=== PATIENT | female | born 1945 | race Caucasian/White ===

== ENCOUNTER → 2016-09-06 | Outpatient (REF) | payer OTHER ==
[~2016-09-06] MED LIST: AMAR1TAB; LOSA100T37 PO; METF1000 PO; No Historical Meds; VITA20008 PO
== END ==
LOC: M SFHCCLAY 14:34
PROVIDERS: ATTEND Family Medicine
DX: E11.9 Type 2 diabetes mellitus without complications (principal)

== ENCOUNTER → 2017-05-18 | Outpatient (REF) | payer OTHER, SELFPAY ==
[~2017-05-18] MED LIST changes: -LOSA100T37 PO; +LOSA100T5 PO; -METF1000 PO; +METF10004 PO
[2017-05-18 18:38] LABS: ANION GAP 7 MEQ/L (8-16); BLOOD UREA NITROGEN 12 MG/DL (7-18); CARBON DIOXIDE LEVEL 31 MEQ/L (21-32); CHLORIDE LEVEL 102 MEQ/L (98-107); CREATININE FOR GFR 0.74 MG/DL (0.55-1.02); GLOMERULAR FILTRATION RATE > 60.0 (>39); GLUCOSE, FASTING 140 MG/DL (83-110); SODIUM LEVEL 140 MEQ/L (136-145)
== END ==
LOC: M SFHCCLAY 12:05
PROVIDERS: ATTEND Family Medicine
DX: E11.9 Type 2 diabetes mellitus without complications (principal); I10 Essential (primary) hypertension

== ENCOUNTER → 2017-09-12 | Outpatient (REF) | payer OTHER ==
[2017-09-13 12:17] LABS: ESTIMATED AVERAGE GLUCOSE 169 MG/DL (60-110); HEMOGLOBIN A1c 7.5 %
== END ==
LOC: M SFHCCLAY 14:58
DX: E11.9 Type 2 diabetes mellitus without complications (principal)

== ENCOUNTER → 2018-11-29 | Outpatient (REF) | payer OTHER, SELFPAY ==
[2018-11-30 11:27] LABS: BLOOD UREA NITROGEN 18 MG/DL (7-18); CALCIUM LEVEL 9.1 MG/DL (8.8-10.2); CARBON DIOXIDE LEVEL 28 MEQ/L (21-32); CHLORIDE LEVEL 105 MEQ/L (98-107); CREATININE FOR GFR 0.86 MG/DL (0.55-1.30); GLOMERULAR FILTRATION RATE > 60.0 (>39); GLUCOSE, FASTING 230 MG/DL (70-100); SODIUM LEVEL 139 MEQ/L (136-145)
[2018-11-30 11:45] LABS: HEMOGLOBIN A1c 8.6 %
== END ==
LOC: M SFHCCLAY 14:41
PROVIDERS: ATTEND Nurse Practitioner Family
DX: E11.9 Type 2 diabetes mellitus without complications (principal)

== ENCOUNTER → 2019-05-29 | Outpatient (REF) | payer OTHER ==
[2019-05-29 17:22] LABS: BLOOD UREA NITROGEN 13 MG/DL (7-18); CALCIUM LEVEL 9.4 MG/DL (8.8-10.2); CARBON DIOXIDE LEVEL 28 MEQ/L (21-32); CHLORIDE LEVEL 100 MEQ/L (98-107); CHOLESTEROL LEVEL 140 MG/DL (<200); CHOLESTEROL RISK RATIO 4.242 (<5); CREATININE FOR GFR 0.78 MG/DL (0.55-1.30); GLOMERULAR FILTRATION RATE > 60.0 (>39); GLUCOSE, FASTING 116 MG/DL (70-100); HDL CHOLESTEROL 33 MG/DL (>40); LDL CHOLESTEROL 28 MG/DL (<100); NON-HDL-C 107 MG/DL; POTASSIUM SERUM 4.6 MEQ/L (3.5-5.1); SODIUM LEVEL 136 MEQ/L (136-145); TRIGLYCERIDES LEVEL 395 MG/DL (<150)
[2019-05-29 17:44] LABS: HEMOGLOBIN A1c 8.4 %
== END ==
LOC: M SFHCCLAY 11:06
PROVIDERS: ATTEND Family Medicine
DX: E11.9 Type 2 diabetes mellitus without complications (principal)

== ENCOUNTER → 2019-11-28 | Outpatient (REF) | payer OTHER, SELFPAY ==
[2019-11-28 16:31] LABS: BLOOD UREA NITROGEN 17 MG/DL (7-18); CARBON DIOXIDE LEVEL 31 MEQ/L (21-32); CHLORIDE LEVEL 99 MEQ/L (98-107); CREATININE FOR GFR 0.99 MG/DL (0.55-1.30); GLOMERULAR FILTRATION RATE 58.4 (>39); GLUCOSE, FASTING 180 MG/DL (70-100); POTASSIUM SERUM 4.1 MEQ/L (3.5-5.1); SODIUM LEVEL 137 MEQ/L (136-145)
[2019-11-28 16:59] LABS: CREATININE, URINE 65.3 MG/DL; MALB URINE SIEMENS 36.5 MG/L; MAU/CREAT RATIO 55.8 MCG/MG (0.0-30.0)
[2019-11-29 11:47] LABS: TOTAL 25(OH) VITAMIN D 30.4 NG/ML (30.0-100.0)
[2019-11-29 13:45] LABS: TOTAL PROTEIN 7.6 GM/DL (6.4-8.2)
[2019-12-03 09:50] LABS: ALBUMIN 4.07 GM/DL (3.29-5.55); ALBUMIN % 53.6 % (55.8-66.1)
[2019-12-03 09:51] LABS: ALPHA-1-GLOBULIN % 5.8 % (2.9-4.9); ALPHA-1-GLOBULINS 0.44 GM/DL (0.17-0.41); ALPHA-2-GLOBULINS 0.89 GM/DL (0.42-0.99); ALPHA-2-GLOBULINS % 11.7 % (7.1-11.8); BETA-1-GLOBULINS 0.46 GM/DL (0.28-0.60); BETA-1-GLOBULINS % 6.1 % (4.7-7.2); BETA-2-GLOBULINS 0.49 GM/DL (0.19-0.55); BETA-2-GLOBULINS % 6.5 % (3.2-6.5); GAMMA GLOBULIN % 16.3 % (11.1-18.8); GAMMA GLOBULINS 1.24 GM/DL (0.65-1.58)
== END ==
LOC: M SFHCCLAY 11:47
PROVIDERS: ATTEND Family Medicine
DX: E11.9 Type 2 diabetes mellitus without complications (principal); I10 Essential (primary) hypertension; E03.9 Hypothyroidism, unspecified

== ENCOUNTER → 2019-12-03 | Outpatient (REF) | payer OTHER, SELFPAY ==
[2019-12-03 16:55] LABS: CALCIUM LEVEL 13.5 MG/DL (8.8-10.2); CREATININE FOR GFR 1.12 MG/DL (0.55-1.30); GLOMERULAR FILTRATION RATE 50.6 (>39); POTASSIUM SERUM 3.9 MEQ/L (3.5-5.1)
== END ==
LOC: M SFHCCLAY 10:21
PROVIDERS: ATTEND Family Medicine
DX: E83.52 Hypercalcemia (principal)

== ENCOUNTER → 2019-12-13 | Outpatient (CLI) | payer SELFPAY ==
--- NOTE | 2019-12-13 11:49 | REPPI ---
CHEST, TWO VIEWS: Two views of the chest are performed. COMPARISON: 09/07/2015. No acute infiltrate is seen. The heart is normal in size. There is bulging of the soft tissues in the aortopulmonic window suggesting adenopathy. Right hilar shadow is also mildly prominent which could represent adenopathy at that location. There is a stable calcified granuloma in the right upper lobe. There are diffuse degenerative changes of the spine. IMPRESSION: Suspect mediastinal and possibly hilar adenopathy. Recommend CT of the chest with IV contrast. Electronically Signed by Chalino Hernandez MD 12/13/2019 03:50 P
== END ==
LOC: M PLAIMG 11:03
PROVIDERS: ATTEND Family Medicine
DX: E83.52 Hypercalcemia (principal); R05 Cough

== ENCOUNTER → 2019-12-13 | Outpatient (CLI) | payer SELFPAY ==
--- NOTE | 2019-12-13 11:10 | REPMRS ---
Patient History The patient states she has not had a clinical breast exam in over a year. Patient is postmenopausal. Family history of prostate cancer at age 50 or over in brother. Digital Woman Screen Mammo: December 13, 2019 - Exam #: [id number] Bilateral CC and MLO view(s) were taken. Technologist: Kayleigh Strong, Technologist No prior studies available for comparison. FINDINGS: There are scattered fibroglandular densities. The Volpara volumetric breast density category is: B. There is no evidence of dominant mass, architectural distortion, or grouped microcalcification typical of malignancy. 3-D tomosynthesis shows no additional findings. Assessment: BI-RADS/ACR category 1 mammogram. Negative Mammogram. Recommendation Routine screening mammogram of both breasts in 1 year (for women over age 40). This patient's Lifetime Breast Cancer RIsk is estimated at 3.2 %. This mammogram was interpreted with the aid of an FDA-approved computer-aided dectection system. Electronically Signed By: Yong Rodriges MD 12/13/19 [id number]
== END ==
LOC: M WHC 10:19
PROVIDERS: ATTEND Family Medicine
DX: Z12.31 Encounter for screening mammogram for malignant neoplasm of breast (principal); Z80.42 Family history of malignant neoplasm of prostate

== ENCOUNTER → 2019-12-23 | Outpatient (REF) | payer OTHER, SELFPAY ==
[2019-12-23 16:44] LABS: CALCIUM LEVEL 11.9 MG/DL (8.8-10.2); CREATININE FOR GFR 1.25 MG/DL (0.55-1.30); GLOMERULAR FILTRATION RATE 44.6 (>39); POTASSIUM SERUM 4.7 MEQ/L (3.5-5.1)
== END ==
LOC: M SFHCCLAY 10:08
PROVIDERS: ATTEND Family Medicine
DX: E83.52 Hypercalcemia (principal)

== ENCOUNTER → 2020-01-30 | Outpatient (REF) | payer OTHER, SELFPAY ==
[2020-01-31 11:55] LABS: CREATININE FOR GFR 1.25 MG/DL (0.55-1.30); GLOMERULAR FILTRATION RATE 44.6 (>39); POTASSIUM SERUM 4.3 MEQ/L (3.5-5.1); THYROID STIMULATING HORMONE 2.16 uIU/ML (0.358-3.740)
== END ==
LOC: M SFHCCLAY 14:39
PROVIDERS: ATTEND Family Medicine
DX: E83.52 Hypercalcemia (principal); E03.9 Hypothyroidism, unspecified

== ENCOUNTER → 2020-10-29 | Outpatient (REF) | payer OTHER, SELFPAY ==
[2020-10-29 16:24] LABS: BASO # 0.1 10^3/uL (0.0-0.2); BASO % 1.1 % (0.0-1.0); EOS # 0.4 10^3/uL (0.0-0.5); EOS % 6.7 % (0.0-3.0); HEMATOCRIT 33.4 % (36.0-47.0); HEMOGLOBIN 10.8 g/dl (12.0-15.5); LYMPH # 1.2 10^3/uL (1.5-5.0); MEAN CORPUSCULAR HEMOGLOBIN 29.8 pg (27.0-33.0); MEAN CORPUSCULAR HGB CONC 32.3 g/dl (32.0-36.5); MONO # 0.6 10^3/uL (0.0-0.8); MONO % 10.2 % (2.0-8.0); NEUTROPHILS # 3.8 10^3/uL (1.5-8.5); NEUTROPHILS % 61.7 % (36.0-66.0); PLATELET COUNT, AUTOMATED 280 10^3/uL (150-450); RED BLOOD COUNT 3.63 10^6/uL (4.00-5.40); WHITE BLOOD COUNT 6.2 10^3/uL (4.0-10.0)
[2020-10-29 16:38] LABS: CALCIUM LEVEL 13.1 MG/DL (8.8-10.2); CREATININE FOR GFR 1.68 MG/DL (0.55-1.30); GLOMERULAR FILTRATION RATE 31.6 (>39); POTASSIUM SERUM 4.2 MEQ/L (3.5-5.1); THYROID STIMULATING HORMONE 3.82 uIU/ML (0.358-3.740)
[2020-10-29 16:43] LABS: HEMOGLOBIN A1c 6.2 %
== END ==
LOC: M SFHCCLAY 10:49
PROVIDERS: ATTEND Family Medicine
DX: E11.9 Type 2 diabetes mellitus without complications (principal); E83.52 Hypercalcemia; E03.9 Hypothyroidism, unspecified; R53.82 Chronic fatigue, unspecified

== ENCOUNTER → 2021-02-19 | Outpatient (REF) | payer OTHER ==
[2021-02-19 16:43] LABS: CREATININE FOR GFR 1.98 MG/DL (0.55-1.30); GLOMERULAR FILTRATION RATE 26.2 (>39); POTASSIUM SERUM 4.3 MEQ/L (3.5-5.1)
[2021-02-19 17:15] LABS: HEMOGLOBIN A1c 8.7 %
== END ==
LOC: M SFHCCLAY 10:48
PROVIDERS: ATTEND Family Medicine
DX: E83.52 Hypercalcemia (principal); E11.9 Type 2 diabetes mellitus without complications

== ENCOUNTER → 2021-07-22 | Outpatient (REF) | payer OTHER ==
[2021-07-22 16:20] LABS: HEMATOCRIT 32.6 % (36.0-47.0); HEMOGLOBIN 10.7 g/dl (12.0-15.5); MEAN CORPUSCULAR HEMOGLOBIN 31.3 pg (27.0-33.0); MEAN CORPUSCULAR HGB CONC 32.8 g/dl (32.0-36.5); MEAN CORPUSCULAR VOLUME 95.3 fl (80.0-96.0); PLATELET COUNT, AUTOMATED 263 10^3/uL (150-450); RED BLOOD COUNT 3.42 10^6/uL (4.00-5.40); WHITE BLOOD COUNT 12.1 10^3/uL (4.0-10.0)
[2021-07-22 16:47] LABS: CALCIUM LEVEL 9.5 MG/DL (8.8-10.2); CREATININE FOR GFR 1.86 MG/DL (0.55-1.30); GLOMERULAR FILTRATION RATE 28.1 (>39); POTASSIUM SERUM 5.2 MEQ/L (3.5-5.1)
[2021-07-22 19:13] LABS: CA 125 15.1 U/ML (<30.2)
== END ==
LOC: M SFHCCLAY 11:28
PROVIDERS: ATTEND Family Medicine
DX: E11.9 Type 2 diabetes mellitus without complications (principal); I25.118 Atherosclerotic heart disease of native coronary artery with other forms of angina pectoris; E83.52 Hypercalcemia; R18.8 Other ascites

== ENCOUNTER → 2021-08-09 | Outpatient (REF) | payer OTHER ==
[2021-08-10 11:30] LABS: BASO # 0.1 10^3/uL (0.0-0.2); EOS # 0.2 10^3/uL (0.0-0.5); EOS % 2.1 % (0.0-3.0); HEMATOCRIT 39.9 % (36.0-47.0); HEMOGLOBIN 13.1 g/dl (12.0-15.5); LYMPH # 1.1 10^3/uL (1.5-5.0); LYMPH % 11.8 % (24.0-44.0); MEAN CORPUSCULAR HEMOGLOBIN 30.8 pg (27.0-33.0); MEAN CORPUSCULAR HGB CONC 32.8 g/dl (32.0-36.5); MEAN CORPUSCULAR VOLUME 93.9 fl (80.0-96.0); MONO # 0.8 10^3/uL (0.0-0.8); MONO % 8.3 % (2.0-8.0); NEUTROPHILS % 76.4 % (36.0-66.0); PLATELET COUNT, AUTOMATED 233 10^3/uL (150-450); RED BLOOD COUNT 4.25 10^6/uL (4.00-5.40); WHITE BLOOD COUNT 9.1 10^3/uL (4.0-10.0)
[2021-08-10 13:52] LABS: ALBUMIN 3.9 GM/DL (3.2-5.2); BILIRUBIN,TOTAL 0.7 MG/DL (0.2-1.0); CALCIUM LEVEL 9.8 MG/DL (8.8-10.2); CREATININE FOR GFR 1.56 MG/DL (0.55-1.30); GLOMERULAR FILTRATION RATE 34.4 (>39); POTASSIUM SERUM 6.6 MEQ/L (3.5-5.1); TOTAL PROTEIN 7.4 GM/DL (6.4-8.2)
== END ==
LOC: M SFHCCLAY 16:10
PROVIDERS: ATTEND Physician Assistant
DX: R07.9 Chest pain, unspecified (principal)

== ENCOUNTER → 2021-08-11 | Outpatient (REF) | payer OTHER | LOC: M SFHCCLAY 10:54 | PROVIDERS: ATTEND Family Medicine | DX: E87.5 Hyperkalemia (principal) ==

== ENCOUNTER → 2021-08-12 | Outpatient (CLI) | payer OTHER, SELFPAY ==
[~2021-08-12] MED LIST changes: +GASTROGRAFIN SOLUTION 30ML (Q9963) As Ordered ONE
== END ==
LOC: M RAD 15:46
PROVIDERS: ATTEND Physician Assistant
DX: R07.9 Chest pain, unspecified (principal); R10.9 Unspecified abdominal pain
CPT/HCPCS: 74176; Q9963

== ENCOUNTER → 2021-10-28 | Outpatient (REF) | payer OTHER ==
[~2021-10-28] MED LIST changes: -GASTROGRAFIN SOLUTION 30ML (Q9963) As Ordered ONE
[2021-10-28 16:23] LABS: CALCIUM LEVEL 10.2 MG/DL (8.8-10.2); CREATININE FOR GFR 1.64 MG/DL (0.55-1.30); GLOMERULAR FILTRATION RATE 32.4 (>39); POTASSIUM SERUM 4.7 MEQ/L (3.5-5.1)
== END ==
LOC: M SFHCCLAY 11:23
PROVIDERS: ATTEND Family Medicine
DX: E11.22 Type 2 diabetes mellitus with diabetic chronic kidney disease (principal); I12.9 Hypertensive chronic kidney disease with stage 1 through stage 4 chronic kidney disease, or unspecified chronic kidney disease; N18.32 Chronic kidney disease, stage 3b

== ENCOUNTER → 2022-03-01 | Outpatient (REF) | payer OTHER ==
[2022-03-01 19:43] LABS: HEMOGLOBIN A1c 8.5 %
[2022-03-01 21:17] LABS: CALCIUM LEVEL 9.5 MG/DL (8.8-10.2); CREATININE FOR GFR 1.58 MG/DL (0.55-1.30); GLOMERULAR FILTRATION RATE 33.9 (>39); POTASSIUM SERUM 4.9 MEQ/L (3.5-5.1)
== END ==
LOC: M SFHCCLAY 11:34
PROVIDERS: ATTEND Family Medicine
DX: I10 Essential (primary) hypertension (principal)

== ENCOUNTER → 2022-08-31 | Outpatient (REF) | payer OTHER ==
[2022-08-31 18:22] LABS: HEMATOCRIT 37.2 % (36.0-47.0); MEAN CORPUSCULAR HEMOGLOBIN 30.2 pg (27.0-33.0); MEAN CORPUSCULAR HGB CONC 32.3 g/dl (32.0-36.5); MEAN CORPUSCULAR VOLUME 93.7 fl (80.0-96.0); PLATELET COUNT, AUTOMATED 247 10^3/uL (150-450); RED BLOOD COUNT 3.97 10^6/uL (4.00-5.40); WHITE BLOOD COUNT 6.4 10^3/uL (4.0-10.0)
[2022-08-31 18:39] LABS: HEMOGLOBIN A1c 8.8 % (4.0-6.0)
[2022-08-31 18:48] LABS: CALCIUM LEVEL 10.5 MG/DL (8.3-10.6); CREATININE FOR GFR 1.56 MG/DL (0.55-1.30); GLOMERULAR FILTRATION RATE 34.4 (>39); POTASSIUM SERUM 4.3 MMOL/L (3.5-5.1)
[2022-08-31 18:50] LABS: FREE T4 0.98 NG/DL (0.89-1.76); THYROID STIMULATING HORMONE 5.805 uIU/ML (0.55-4.78)
== END ==
LOC: M SFHCCLAY 12:15
PROVIDERS: ATTEND Family Medicine
DX: E11.22 Type 2 diabetes mellitus with diabetic chronic kidney disease (principal); E03.9 Hypothyroidism, unspecified; I10 Essential (primary) hypertension

== ENCOUNTER 2023-01-04 15:20 | Inpatient (IN) | payer SELFPAY ==
[~2023-01-04] VITALS: Ht 149.9 cm; Wt 64.5 kg
[2023-01-04] MEDS ORDERED: GLIP5TAB8 PO ×2 (15:46→20:26)
[2023-01-04] MEDS ORDERED: FURO20TA2 PO (15:46)
[2023-01-04] MEDS ORDERED: NESI12.5 PO (15:46)
[2023-01-04 17:37] LABS: BASO # 0.1 10^3/uL (0.0-0.2); EOS # 0.7 10^3/uL (0.0-0.5); EOS % 7.4 % (0.0-3.0); HEMATOCRIT 41.9 % (36.0-47.0); HEMOGLOBIN 13.9 g/dl (12.0-15.5); LYMPH # 2.3 10^3/uL (1.5-5.0); LYMPH % 24.7 % (24.0-44.0); MEAN CORPUSCULAR HEMOGLOBIN 30.3 pg (27.0-33.0); MEAN CORPUSCULAR HGB CONC 33.2 g/dl (32.0-36.5); MEAN CORPUSCULAR VOLUME 91.5 fl (80.0-96.0); MONO % 10.3 % (2.0-8.0); NEUTROPHILS # 5.2 10^3/uL (1.5-8.5); PLATELET COUNT, AUTOMATED 271 10^3/uL (150-450); RED BLOOD COUNT 4.58 10^6/uL (4.00-5.40); WHITE BLOOD COUNT 9.3 10^3/uL (4.0-10.0)
[2023-01-04] MEDS ORDERED: NS 1,000 ML IV ONE (17:40)
[2023-01-04 17:43] LABS: ALKALINE PHOSPHATASE 99 U/L (46-116); ALT/SGPT 27 U/L (7.0-40); AST/SGOT 32 U/L (<34); BILIRUBIN,DIRECT < 0.1 MG/DL (<0.4); BILIRUBIN,TOTAL 0.4 MG/DL (0.3-1.2); CK-MB VALUE MASS < 1.0 NG/ML (<3.6); TOTAL PROTEIN 7.6 G/DL (5.7-8.2)
[2023-01-04 17:47] LABS: CPK CREATINE PHOSPHOKINASE 55 U/L (34-145); MB/CK RELATIVE INDEX 1.81 (< OR =4)
[2023-01-04] MEDS ORDERED: METO1TAB33 PO (20:26)
[2023-01-04] MEDS ORDERED: ECOT81TA5 PO (20:26)
[2023-01-04 20:28] LABS: MAGNESIUM LEVEL 2.8 MG/DL (1.8-2.4)
[2023-01-04] MEDS ORDERED: HOME MED LIST COMPLETE! XX SCH (20:30)
[2023-01-04 20:33] LABS: FREE T4 0.98 NG/DL (0.89-1.76)
[2023-01-04 20:34] LABS: RSV AMPLIFICATION NEGATIVE (NEGATIVE)
[2023-01-04 20:45] LABS: VENOUS HCO3 31.5 MMOL/L (23.0-27.0); VENOUS O2 SATURATION 60.9 % (60.0-80.0); VENOUS PARTIAL PRESSURE CO2 54.4 mmHg (38.0-50.0); VENOUS PARTIAL PRESSURE O2 32.4 mmHg (30.0-50.0); VENOUS PH 7.381 UNITS (7.330-7.430); VENOUS STANDARD HCO3 28.1 MMOL/L; VENOUS TOTAL CO2 33.2 MMOL/L (24.0-28.0)
[2023-01-04 21:39] VITALS: BP 188/90; TEMP 98.2; O2SAT 99
[2023-01-04] MEDS ORDERED: FOSFOMYCIN TROMETHAMINE 3 GM POWDER PACKET (MONUROL) PO ONE (22:00)
[2023-01-04] MEDS: NS 1,000 ML IV SCH (22:16)
[2023-01-04] MEDS: NYSTATIN 100,000 UNITS/GM TOPICAL PWD 15GM TOP SCH (22:16)
[2023-01-04 22:25] VITALS: BP 158/98
[2023-01-04] MEDS ORDERED: GLUCOSE 4GM CHEW TABLET PO PRN (23:05)
[2023-01-04] MEDS ORDERED: DEXTROSE 50% 50ML SYRINGE IV PRN (23:05)
[2023-01-04] MEDS ORDERED: FLUTICASONE PROP 0.05% NASAL SPRAY 16 GM (FLONASE) NARES PRN (23:05)
[2023-01-04] MEDS ORDERED: GLUCAGON INJ 1MG VIAL SC PRN (23:05)
[2023-01-04] MEDS: INSULIN LISPRO (NovoLOG) PER UNIT SC SCH (23:16)
[2023-01-04] MEDS: DOCUSATE SODIUM 100MG CAPSULE PO SCH (23:24)
[2023-01-05 06:00] VITALS: BP 165/70; TEMP 98.6; O2SAT 97
[2023-01-05 07:20] LABS: HEMATOCRIT 38.2 % (36.0-47.0); HEMOGLOBIN 12.5 g/dl (12.0-15.5); MEAN CORPUSCULAR HEMOGLOBIN 30.3 pg (27.0-33.0); MEAN CORPUSCULAR HGB CONC 32.7 g/dl (32.0-36.5); MEAN CORPUSCULAR VOLUME 92.5 fl (80.0-96.0); PLATELET COUNT, AUTOMATED 229 10^3/uL (150-450); RED BLOOD COUNT 4.13 10^6/uL (4.00-5.40); WHITE BLOOD COUNT 6.4 10^3/uL (4.0-10.0)
[2023-01-05 07:58] LABS: ALBUMIN 3.4 G/DL (3.2-5.2); BILIRUBIN,TOTAL 0.3 MG/DL (0.3-1.2); CALCIUM LEVEL 14.4 MG/DL (8.3-10.6); CREATININE FOR GFR 2.18 MG/DL (0.55-1.30); GLOMERULAR FILTRATION RATE 23.3 (>39); POTASSIUM SERUM 3.6 MMOL/L (3.5-5.1); TOTAL PROTEIN 6.5 G/DL (5.7-8.2)
[2023-01-05] MEDS: ASPIRIN 81MG ENTERIC TABLET PO SCH (08:33)
[2023-01-05] MEDS: MIRALAX *UNIT DOSE* 17GM PACKET PO SCH (08:33)
[2023-01-05] MEDS: INSULIN LISPRO (NovoLOG) PER UNIT SC SCH ×4 (08:34→20:12)
[2023-01-05] MEDS: NYSTATIN 100,000 UNITS/GM TOPICAL PWD 15GM TOP SCH ×2 (08:35→20:12)
[2023-01-05] MEDS: DOCUSATE SODIUM 100MG CAPSULE PO SCH ×2 (08:36→20:13)
[2023-01-05 08:38] LABS: MAGNESIUM LEVEL 2.5 MG/DL (1.8-2.4)
[2023-01-05] MEDS: NS 1,000 ML IV SCH ×2 (08:39→20:13)
[2023-01-05] MEDS ORDERED: METOPROLOL SUCC (TopROL XL) 100MG *XL* TAB PO SCH (09:00)
[2023-01-05] MEDS: CALCITONIN SALMON (MIACALCIN) 400INTERNATIONAL UNITS/2ML VIAL SQ SCH ×2 (09:31→20:12)
[2023-01-05 09:34] LABS: PTH INTACT 8.6 PG/ML (18.5-88.0)
[2023-01-05 09:38] LABS: TOTAL 25(OH) VITAMIN D 50.6 NG/ML (20.0-100.0)
[2023-01-05 13:29] LABS: ALBUMIN 3.8 G/DL (3.2-5.2); CALCIUM LEVEL 12.5 MG/DL (8.3-10.6)
[2023-01-05 14:00] VITALS: BP 140/85; TEMP 97.7; O2SAT 97
[2023-01-05] MEDS: HEPARIN SOD (PORCINE) 5000UNITS/ML 1ML VIAL/SYRINGE SQ SCH ×2 (15:01→21:55)
[2023-01-05 20:07] VITALS: BP 178/80; TEMP 98.8; TEMP 99.1; O2SAT 94
[2023-01-05 20:08] LABS: ALBUMIN 3.4 G/DL (3.2-5.2); CALCIUM LEVEL 11.3 MG/DL (8.3-10.6)
[2023-01-05] MEDS: diphenhydrAMINE CREAM 30GM TOP PRN (20:12)
[2023-01-05] MEDS: ACETAMINOPHEN TAB 650MG DOSE (2X325MG) PO PRN (20:14)
[2023-01-05] MEDS ORDERED: **hydrALAZINE** 10 MG TAB PO ONE (20:55)
[2023-01-05 21:35] VITALS: TEMP 98.2
[2023-01-05 23:05] VITALS: BP 178/82
[2023-01-06] VITALS (13 sets, daily range): BP systolic 137–222; BP diastolic 60–98; TEMP 98.7–100.1; O2SAT 91–96
[2023-01-06] MEDS ORDERED: amLODIPine 5 MG TAB PO ONE
[2023-01-06] MEDS ORDERED: hydrALAZINE 20MG/ML 1ML VIAL IV ONE ×2 (02:00→03:00)
[2023-01-06 02:13] LABS: ALBUMIN 3.1 G/DL (3.2-5.2); CALCIUM LEVEL 11.9 MG/DL (8.3-10.6)
[2023-01-06] MEDS ORDERED: CALCITONIN SALMON (MIACALCIN) 400INTERNATIONAL UNITS/2ML VIAL SQ ONE (03:00)
[2023-01-06] MEDS ORDERED: SCOPOLAMINE 1MG TRANSDERMAL PATCH TOP ONE (04:00)
[2023-01-06 04:10] LABS: BASO # 0.1 10^3/uL (0.0-0.2); BASO % 0.9 % (0.0-1.0); EOS # 0.5 10^3/uL (0.0-0.5); EOS % 6.4 % (0.0-3.0); HEMATOCRIT 36.4 % (36.0-47.0); HEMOGLOBIN 12.3 g/dl (12.0-15.5); LYMPH # 1.7 10^3/uL (1.5-5.0); LYMPH % 22.9 % (24.0-44.0); MEAN CORPUSCULAR HEMOGLOBIN 30.4 pg (27.0-33.0); MEAN CORPUSCULAR HGB CONC 33.8 g/dl (32.0-36.5); MEAN CORPUSCULAR VOLUME 90.1 fl (80.0-96.0); MONO # 0.7 10^3/uL (0.0-0.8); MONO % 9.2 % (2.0-8.0); NEUTROPHILS # 4.5 10^3/uL (1.5-8.5); NEUTROPHILS % 60.3 % (36.0-66.0); PLATELET COUNT, AUTOMATED 248 10^3/uL (150-450); RED BLOOD COUNT 4.04 10^6/uL (4.00-5.40); WHITE BLOOD COUNT 7.5 10^3/uL (4.0-10.0)
[2023-01-06 04:42] LABS: CREATININE FOR GFR 1.99 MG/DL (0.55-1.30); GLOMERULAR FILTRATION RATE 25.9 (>39); POTASSIUM SERUM 3.6 MMOL/L (3.5-5.1)
[2023-01-06] MEDS: HEPARIN SOD (PORCINE) 5000UNITS/ML 1ML VIAL/SYRINGE SQ SCH ×3 (06:09→21:07)
[2023-01-06] MEDS: NS 1,000 ML IV SCH ×2 (06:09→15:34)
[2023-01-06 07:34] LABS: ALBUMIN 3.3 G/DL (3.2-5.2); CALCIUM LEVEL 11.8 MG/DL (8.3-10.6)
[2023-01-06] MEDS: MIRALAX *UNIT DOSE* 17GM PACKET PO SCH (08:08)
[2023-01-06] MEDS: DOCUSATE SODIUM 100MG CAPSULE PO SCH ×2 (08:08→20:21)
[2023-01-06] MEDS ORDERED: CALCITONIN SALMON (MIACALCIN) 400INTERNATIONAL UNITS/2ML VIAL SQ SCH (09:00)
[2023-01-06] MEDS: INSULIN LISPRO (NovoLOG) PER UNIT SC SCH ×4 (09:09→20:50)
[2023-01-06] MEDS: ASPIRIN 81MG ENTERIC TABLET PO SCH (09:19)
[2023-01-06] MEDS: hydrALAZINE 20MG/ML 1ML VIAL IV PRN ×3 (09:20→20:49)
[2023-01-06] MEDS: NYSTATIN 100,000 UNITS/GM TOPICAL PWD 15GM TOP SCH ×2 (09:20→20:49)
[2023-01-06 10:09] LABS: ALBUMIN 3.3 G/DL (3.2-5.2); CALCIUM LEVEL 10.6 MG/DL (8.3-10.6)
[2023-01-06] MEDS: amLODIPine 5 MG TAB PO SCH (10:19)
[2023-01-06] MEDS: ONDANSETRON 4MG 2ML VIAL IV PRN ×2 (10:19→16:45)
[2023-01-06 15:38] LABS: ALBUMIN 3.3 G/DL (3.2-5.2); CALCIUM LEVEL 10.2 MG/DL (8.3-10.6)
[2023-01-06 21:42] LABS: ALBUMIN 3.2 G/DL (3.2-5.2); CALCIUM LEVEL 9.9 MG/DL (8.3-10.6)
[2023-01-07] VITALS (19 sets, daily range): BP systolic 149–200; BP diastolic 63–84; TEMP 98.6–100.1; O2SAT 93–97
[2023-01-07] MEDS: ONDANSETRON 4MG 2ML VIAL IV PRN ×2 (00:16→06:16)
[2023-01-07] MEDS: hydrALAZINE 20MG/ML 1ML VIAL IV PRN ×2 (03:09→21:23)
[2023-01-07] MEDS: ACETAMINOPHEN TAB 650MG DOSE (2X325MG) PO PRN (03:09)
[2023-01-07 03:18] LABS: BASO % 0.5 % (0.0-1.0); EOS # 0.2 10^3/uL (0.0-0.5); EOS % 2.1 % (0.0-3.0); HEMATOCRIT 33.7 % (36.0-47.0); HEMOGLOBIN 11.2 g/dl (12.0-15.5); LYMPH # 1.3 10^3/uL (1.5-5.0); LYMPH % 15.9 % (24.0-44.0); MEAN CORPUSCULAR HEMOGLOBIN 30.6 pg (27.0-33.0); MEAN CORPUSCULAR HGB CONC 33.2 g/dl (32.0-36.5); MEAN CORPUSCULAR VOLUME 92.1 fl (80.0-96.0); MONO # 0.7 10^3/uL (0.0-0.8); MONO % 8.5 % (2.0-8.0); NEUTROPHILS # 5.9 10^3/uL (1.5-8.5); NEUTROPHILS % 72.4 % (36.0-66.0); PLATELET COUNT, AUTOMATED 249 10^3/uL (150-450); RED BLOOD COUNT 3.66 10^6/uL (4.00-5.40); WHITE BLOOD COUNT 8.2 10^3/uL (4.0-10.0)
[2023-01-07 03:47] LABS: ALBUMIN 3.2 G/DL (3.2-5.2); CREATININE FOR GFR 2.06 MG/DL (0.55-1.30); GLOMERULAR FILTRATION RATE 24.9 (>39); MAGNESIUM LEVEL 1.7 MG/DL (1.8-2.4); POTASSIUM SERUM 3.4 MMOL/L (3.5-5.1)
[2023-01-07] MEDS ORDERED: KCL 10MEQ/100ML SWI (KRUN) 10 MEQ in IV 1 EA IV ONE ×2 (05:00→06:00)
[2023-01-07] MEDS ORDERED: MAG SULF 1GM/100ML (MAG RUN) 1 GM in IV 1 EA IV ONE (05:00)
[2023-01-07] MEDS: HEPARIN SOD (PORCINE) 5000UNITS/ML 1ML VIAL/SYRINGE SQ SCH ×3 (05:54→21:23)
[2023-01-07] MEDS: MIRALAX *UNIT DOSE* 17GM PACKET PO SCH (08:02)
[2023-01-07] MEDS: DOCUSATE SODIUM 100MG CAPSULE PO SCH ×2 (08:02→21:22)
[2023-01-07] MEDS: cefTRIAXone SOD 1 GM in D5W MINI-BAG PLUS 50 ML IV SCH (08:14)
[2023-01-07] MEDS: amLODIPine 5 MG TAB PO SCH (08:14)
[2023-01-07] MEDS: ASPIRIN 81MG ENTERIC TABLET PO SCH (08:14)
[2023-01-07] MEDS: INSULIN LISPRO (NovoLOG) PER UNIT SC SCH ×4 (08:15→20:42)
[2023-01-07] MEDS: NYSTATIN 100,000 UNITS/GM TOPICAL PWD 15GM TOP SCH ×2 (08:16→21:24)
[2023-01-07] MEDS ORDERED: CEFDINIR 300 MG CAP (OMNICEF) PO SCH (09:00)
[2023-01-07 09:29] LABS: ALBUMIN 3.1 G/DL (3.2-5.2); CALCIUM LEVEL 10.7 MG/DL (8.3-10.6)
[2023-01-07 11:06] LABS: ALKALINE PHOSPHATASE 65 U/L (46-116); ALT/SGPT 16 U/L (7.0-40); AMYLASE 66 U/L (30-118); AST/SGOT 16 U/L (<34); BILIRUBIN,DIRECT < 0.1 MG/DL (<0.4); BILIRUBIN,TOTAL 0.2 MG/DL (0.3-1.2); LIPASE 22 U/L (12-53); TOTAL PROTEIN 5.7 G/DL (5.7-8.2)
[2023-01-07 16:00] LABS: ALBUMIN 3.2 G/DL (3.2-5.2); CALCIUM LEVEL 9.9 MG/DL (8.3-10.6)
[2023-01-07 17:07] LABS: FREE KAPPA LIGHT CHAINS SERUM 69.7 mg/L (3.3-19.4); FREE LAMBDA LIGHT CHAINS SERUM 82.4 mg/L (5.7-26.3); KAPPA/LAMBDA RATIO SERUM 0.85 (0.26-1.65)
[2023-01-07] MEDS: diphenhydrAMINE CREAM 30GM TOP PRN (21:23)
[2023-01-08] VITALS (7 sets, daily range): BP systolic 143–164; BP diastolic 61–72; TEMP 98.2–98.7; O2SAT 95–96
[2023-01-08 05:01] LABS: BASO # 0.1 10^3/uL (0.0-0.2); BASO % 0.6 % (0.0-1.0); EOS # 0.4 10^3/uL (0.0-0.5); HEMATOCRIT 34.5 % (36.0-47.0); HEMOGLOBIN 11.3 g/dl (12.0-15.5); LYMPH # 1.4 10^3/uL (1.5-5.0); LYMPH % 18.2 % (24.0-44.0); MEAN CORPUSCULAR HEMOGLOBIN 30.4 pg (27.0-33.0); MEAN CORPUSCULAR HGB CONC 32.8 g/dl (32.0-36.5); MEAN CORPUSCULAR VOLUME 92.7 fl (80.0-96.0); MONO # 0.7 10^3/uL (0.0-0.8); MONO % 9.5 % (2.0-8.0); NEUTROPHILS # 5.2 10^3/uL (1.5-8.5); NEUTROPHILS % 66.2 % (36.0-66.0); PLATELET COUNT, AUTOMATED 232 10^3/uL (150-450); RED BLOOD COUNT 3.72 10^6/uL (4.00-5.40); WHITE BLOOD COUNT 7.8 10^3/uL (4.0-10.0)
[2023-01-08 05:16] LABS: CALCIUM LEVEL 10.4 MG/DL (8.3-10.6); CREATININE FOR GFR 2.04 MG/DL (0.55-1.30); GLOMERULAR FILTRATION RATE 25.1 (>39); MAGNESIUM LEVEL 1.8 MG/DL (1.8-2.4); POTASSIUM SERUM 3.3 MMOL/L (3.5-5.1)
[2023-01-08 05:17] LABS: IMMUNOGLOBULIN A 229.7 MG/DL (40-350); IMMUNOGLOBULIN M 55.7 MG/DL (50-300)
[2023-01-08] MEDS: KCL 10MEQ/100ML SWI (KRUN) 10 MEQ in IV 1 EA IV SCH ×2 (06:01→07:20)
[2023-01-08] MEDS: HEPARIN SOD (PORCINE) 5000UNITS/ML 1ML VIAL/SYRINGE SQ SCH (06:02)
[2023-01-08] MEDS: INSULIN LISPRO (NovoLOG) PER UNIT SC SCH (07:47)
[2023-01-08] MEDS: cefTRIAXone SOD 1 GM in D5W MINI-BAG PLUS 50 ML IV SCH (07:47)
[2023-01-08] MEDS: DOCUSATE SODIUM 100MG CAPSULE PO SCH (08:32)
[2023-01-08] MEDS: ASPIRIN 81MG ENTERIC TABLET PO SCH (08:33)
[2023-01-08] MEDS: MIRALAX *UNIT DOSE* 17GM PACKET PO SCH (08:33)
[2023-01-08] MEDS: amLODIPine 5 MG TAB PO SCH (08:33)
[2023-01-08] MEDS: NYSTATIN 100,000 UNITS/GM TOPICAL PWD 15GM TOP SCH (08:34)
[2023-01-08] MEDS ORDERED: AMLO1TAB24 PO (08:47)
[2023-01-08] MEDS ORDERED: CEFD300C41 PO (08:47)
[2023-01-08] MEDS ORDERED: GLIP5TAB8 PO (08:47)
[2023-01-08] MEDS ORDERED: POTASSIUM CHLORIDE 10MEQ SR TABLET PO ONE (09:00)
[2023-01-08] MEDS ORDERED: AMLO1TAB25 PO (11:11)
[2023-01-10 16:09] LABS: IMMUNOTYPING SERUM IGA SO 240 mg/dL (64-422); IMMUNOTYPING SERUM IGM SO 50 mg/dL (26-217)
[2023-01-11 17:07] LABS: ANGIOTENSIN 1 CONVERTING ENZYM 57 U/L (14-82); PTH RELATED PEPTIDE < 2.0 pmol/L (.)
== END 2023-01-08 10:17 | disposition home or self-care (01) | DRG 425 ==
LOC: M ED 15:20 → M ED INP 19:49 → M MSPAV 21:43 → M ICU 01-06 01:27
PROVIDERS: ADMIT Family Medicine; ATTEND Internal Medicine
DX: E83.52 Hypercalcemia (principal); I12.9 Hypertensive chronic kidney disease with stage 1 through stage 4 chronic kidney disease, or unspecified chronic kidney disease; D64.9 Anemia, unspecified; M19.90 Unspecified osteoarthritis, unspecified site; E11.22 Type 2 diabetes mellitus with diabetic chronic kidney disease; H26.9 Unspecified cataract; K59.00 Constipation, unspecified; N17.9 Acute kidney failure, unspecified; R53.1 Weakness; M79.89 Other specified soft tissue disorders; L30.4 Erythema intertrigo; Z66 Do not resuscitate; R00.1 Bradycardia, unspecified; R11.2 Nausea with vomiting, unspecified; R63.0 Anorexia; N18.30 Chronic kidney disease, stage 3 unspecified; E87.6 Hypokalemia; E02 Subclinical iodine-deficiency hypothyroidism; E86.0 Dehydration; I16.9 Hypertensive crisis, unspecified; N39.0 Urinary tract infection, site not specified; R53.81 Other malaise; R53.83 Other fatigue; Z90.49 Acquired absence of other specified parts of digestive tract; Z79.82 Long term (current) use of aspirin; Z88.2 Allergy status to sulfonamides; Z88.8 Allergy status to other drugs, medicaments and biological substances; Z79.84 Long term (current) use of oral hypoglycemic drugs; Z79.899 Other long term (current) drug therapy